=== PATIENT | female | born 1965 | race Caucasian/White ===

== ENCOUNTER → 2017-05-10 | Outpatient (CLI) | payer BC ==
--- NOTE | 2017-05-10 15:13 | RAD ---
Indication polyarthralgia. AP oblique and lateral views of both hands were obtained. Films of the right hand demonstrate some minimal degenerative change at the DIP joints. Mineralization appears normal. No definite erosions are seen. Views of the left hand similarly demonstrate some degenerative changes involving the DIP joints. Slight degenerative change is seen at the first CMC joint and at the first metacarpal phalangeal joint IMPRESSION: Mild degenerative changes involving the hands.
== END | disposition home or self-care (01) ==
LOC: KCIC 14:23
PROVIDERS: ATTEND Internal Medicine Rheumatology
DX: M19.042 Primary osteoarthritis, left hand (principal); M19.041 Primary osteoarthritis, right hand
CPT/HCPCS: 73130